=== PATIENT | female | born 1990 | race Caucasian/White ===

== ENCOUNTER 2017-02-22 09:54 | Emergency (ER) | payer OTHER ==
[~2017-02-22] VITALS: Ht 167.6 cm; Wt 59.1 kg
[~2017-02-22 09:54] MED LIST: CLIN-78 PO; DXM4T PO; NAPR500T5 PO; OMEP20CA11 PO; PREN-100 PO
[2017-02-22 09:59] VITALS: BP 137/96; PULSE 95; RESP 18; O2SAT 96
--- NOTE | 2017-02-22 10:05 | ED.REPORT ---
HPI-Psychiatric Illness Date of Service February 22, 2017 ED Provider: Tylor Nova DO Pt is a 26 y/o female w/ a hx of depression, heroin abuse, suicide attempt, Hep C, presenting to the ED with her sister c/o suicidal ideation onset 1 week ago. She states her depression has been worsening over the past 2 months and recently has gotten to a point where she relapsed back into heroin use 1 week ago and has become suicidal because she doesn't want to put her family through this process again. Her sister reports she is not always compliant with her depression medication and ran out of her medication 1 week ago. Her plan for suicide at this time would be overdose for which her sister reports she had a suicide attempt by overdose 1 year ago. Pt denies any hallucinations, homicidal ideations. She denies any physical symptoms. She was previously drinking quite a bit of alcohol (unspecified) but this has decreased to only be 1 beer yesterday. PCP: Pham Mo Nursing Notes Stated Complaint: SUICIDAL IDEATION Chief Complaint: Psychiatric Complaint Nursing Notes Reviewed: Yes Allergies: Coded Allergies: No Known Allergies (Unverified , 10/14/15) Scheduled Buprenorphine HCl/Naloxone HCl (Suboxone 8 mg-2 mg Sl Film) 1 Each Film 1 EACH SL DAILY full strip 5/1 1/2 strip 5/2 and 5/3 1/4 strip 5/4 and 5/5, may continue /4 strip 5/6 and 5/7 if needed Clindamycin (Clindamycin) 300 Mg Capsule 300 MG PO QID Dexamethasone (Dexamethasone) 4 Mg Tablet 4 MG PO DAILY 12 mg daily for 3 days, then 8 mg daily for 2 days then 4 mg on the final day Omeprazole (Omeprazole) 20 Mg Capsule. 20 MG PO DAILY Vits #90/Iron Fum/FA ( Formula Tablet) 1 Each Tablet 1 EACH PO DAILY Scheduled PRN Naproxen (Naproxen) 500 Mg Tablet. 500 MG PO BID PRN PRN For Pain General Time Seen by MD: 10:04 Chief Complaint Suicidal ideation Hx Obtained From: Patient, Other family... Arrived By: Walk-in Onset Occurred: 1 week ago Symptom Duration: Since onset Progression Since Onset: Constant Severity: Current: No pain currently Severity: Maximum: No pain Recent Healthcare: Previous diagnosis Similar Sx Previous: Yes Risk-Psychiatric Illness Suicide Risk Stratification RF Statements: Risk factors reviewed Past Medical History Past Medical History Depression Suicide attempt by overdose Hepatitis C Hx of drug abuse Past Surgical History Reports: Smoking History Current Some Day Smoker Social History Hx of heroin use, unknown if currently using Alcohol Use: "Social" Ambulatory Status Independent Review of Systems Constitutional: Denies: Chills, Fever Respiratory: Denies: Non-productive cough, Shortness of breath Cardiovascular: Denies: Chest pain, Dyspnea on exertion GI: Denies: Abdominal pain, Diarrhea, Nausea, Vomiting Psychiatric: Reports: Depression, Suicidal ideation, Denies: Agitation, Change mental status, Confusion, Delusional, Hallucinations, auditory, Hallucinations, visual, Homicidal ideation, Hostile Complete sys rev & neg: except as marked. Physical Exam Initial Vital Signs Vital Signs (First) Date Time Temp Pulse Resp B/P Pulse Ox O2 Delivery O2 Flow Rate FiO2 02/22/17 09:59 36.4 95 18 137/96 96 02/22/17 16:36 Room Air Initial VS: Reviewed, Vital signs normal Head / Eyes: Atraumatic, Normocephalic, PERRL ENT: Mucous membranes moist, Conjunctiva normal, No scleral icterus Neck: Supple, Full range of motion Respiratory: Breath sounds normal, Clear to auscultation, No respiratory distress Cardiovascular: Regular rate & rhythm, Heart sounds normal, Intact distal pulses Abdomen / GI: Soft, Non-tender Extremities: Vascular intact, Neuro intact, No swelling General/Constitutional: Awake, Alert, No acute distress, Cooperative, Not toxic appearing Behavior: Positive: Tearful Neurologic: Oriented X3, Speech NL, No motor deficits, Memory NL Abnormal Mood/Affect: Positive: Flat affect Abnormal Thinking / Perception: Positive: Suicidal, with plan Bruising and puncture billings over left hand Skin: Warm, Dry Bruising and puncture billings over left hand Interpretation & Diagnostics Lab Results Interpretation Result Diagram: 02/22/17 1025 02/22/17 1025 Test 02/22/17 10:17 02/22/17 10:25 02/22/17 11:20 Hold Dougherty Top Tube Received (Received) White Blood Count 3.7th/mm3 (3.8-10.1) Red Blood Count 4.74mil/mm3 (3.90-5.20) Hemoglobin 14.5g/dL (12.0-15.6) Hematocrit 42.5% (35.0-46.0) Mean Corpuscular Volume 89.7fL (81-100) Mean Corpuscular Hemoglobin 30.6pg (27.0-35.0) Mean Corpuscular Hemoglobin Concent 34.1% (32.0-37.0) Red Cell Distribution Width 12.1% (12.3-15.4) Platelet Count 213bil/L (150-400) Neutrophils (%) (Auto) 69.3% (40-74) Lymphocytes (%) (Auto) 21.9% (14-46) Monocytes (%) (Auto) 7.5% (4-12) Eosinophils (%) (Auto) 0.5% (0-5) Basophils (%) (Auto) 0.5% (0-3) Sodium Level 138mEq/L (134-144) Potassium Level 4.1mEq/L (3.5-5.2) Chloride Level 99mEq/L (97-108) Carbon Dioxide Level 21mmol/L (18-29) Blood Urea Nitrogen 16mg/dL (6-20) Creatinine 0.80mg/dL (0.57-1.00) Estimat Glomerular Filtration Rate 123mL/min (>59) Glucose Level 101mg/dL (60-99) Calcium Level 9.2mg/dL (8.5-10.1) Total Bilirubin 0.8mg/dL (0.0-1.2) Aspartate Amino Transf (AST/SGOT) 15U/L (0-50) Alanine Aminotransferase (ALT/SGPT) 17U/L (0-32) Alkaline Phosphatase 52U/L (25-150) Total Protein 7.6g/dL (6.4-8.4) Albumin 4.7g/dL (3.4-5.0) Thyroid Stimulating Hormone (TSH) 0.911uIU/mL (0.450-4.500) Hold Urine Received (Received) Lab Results Interpretation: Urine negative Re-Eval/Medical Decision Med Decision/Clinical Course Acute depression and suicidal thoughts compounded with recent heroin use. Arrangements are made for patient to go to crisis respite she is agreeable to this, this seems reasonable as she is voluntary. Suboxone is prescribed by Dr. smith. Return and follow-up precautions given Re-Evaluation/Progress : Time of Eval: 16:30 Re-Evaluation/Progress Note: Accepted to [facility]. Consultation : Call Returned at: 16:13 Note: Suboxone consultation: clean for 1 year. Relapse for last 7-9 days. Would like to wean off suboxone in a couple days while at crisis. not interested in prolonged suboxone (was on it for a year prior to current relapse). COW score currently 13. Will likely be to >26 by this evening. Recommend 8mg tonight, when COW score >26 (she is well aware of precipitated withdrawal). 4mg for 2 days, 1/4 mg for 4 days. card for [facility] option given. Rx given. D/c with sister. Respite at 8pm tonight. Dr Smith, 16:15 02/22/17 Counseled Regarding: Diagnosis, Lab results, Need for follow-up, When/why to return to ED Discharge & Departure Impression: Primary Impression: Heroin abuse Additional Impressions: Depression Depression Type: unspecified Qualified Code: F32.9 - Major depressive disorder, single episode, unspecified Suicidal ideation )( Condition at Discharge: No danger to self, No danger to others, No suicidal ideation, No homicidal ideation, Clear for drug rehab Disposition: Home Discharge Condition All VS Reviewed: Yes Condition: Stable Referrals: Pham Mo (PCP) Milagros Attestation Portions of this note were transcribed by Vic Espino. I, Dr. Nova personally performed the history, physical exam and medical decision-making; I reviewed and confirmed the accuracy of the information in the transcribed note. Signed by Milagros Burgos, 02/22/17 - 1030 copies to: Pham Mo Timothy S DO February 22, 2017 10:05 VIC ESPINO February 22, 2017 10:13 Estee Smith MD February 22, 2017 16:16
[2017-02-22 10:33] LABS: BASOPHILS % (AUTO) 0.5 % (0-3); EOSINOPHILS % (AUTO) 0.5 % (0-5); MONOCYTES % (AUTO) 7.5 % (4-12); Mean Corpuscular Hemoglobin 30.6 pg (27.0-35.0); Mean Corpuscular Volume 89.7 fL (81-100); NEUTROPHILS % (AUTO) 69.3 % (40-74); Platelet Count 213 bil/L (150-400)
[2017-02-22] MEDS ORDERED: Ondansetron 8 mg ODT Tablet PO ONE (15:30)
[2017-02-22] MEDS ORDERED: BUPR1FIL3 SL (16:20)
[2017-02-22 16:36] VITALS: BP 107/62; PULSE 74; RESP 16; O2SAT 99
== END 2017-02-22 16:37 | disposition home or self-care (01) ==
LOC: SED 09:54
DX: F11.10 Opioid abuse, uncomplicated (principal); F32.9 Major depressive disorder, single episode, unspecified; F17.200 Nicotine dependence, unspecified, uncomplicated; Z79.899 Other long term (current) drug therapy